=== PATIENT | female | born 1945 | race Caucasian/White ===

== ENCOUNTER 2016-07-03 19:56 | Inpatient (IN) | payer MEDICARE, OTHER ==
[~2016-07-03] VITALS: Ht 172 cm; Wt 61.0 kg
[~2016-07-03 19:56] MED LIST: AMOXICILLIN 8751 TAB PO; ANUSOL HC CREAM30 GM TP; ASPIRIN E.C. 8181 MG PO; ATROVENT I0.2 MG/1 M; CATAPRES-TTS 10.1 M1 TD; CEPHALEXIN500 M1 PO; CLARITIN 1010 MG/TAB PO; COUMADIN 1MG1 MG/TAB PO; COUMADIN 2MG2 MG/TAB; COUMADIN 2MG2 MG/TAB PO; DESYREL 50MG50 MG PO; FASLODEX250 MG/5 M IM; FEMARA PO; HCTZ 25MG TAB25 MG PO; HYDROCORT CREAM2.5% TP; IRON TABLETS325 MG PO; L-GLUTAMINE PO; L-GLUTAMINE500 M2 PO; LAMISIL1% TOP; LANOXIN 0.120.125 MG PO; LEVAQUIN 750MG750 M1 PO; LEVOXYL0.088 MG PO; LIPITOR 40MG TA40 MG PO; LOPRESSOR 225 MG/TAB PO; LOTENSIN40 MG PO; MEGACE20 MG; MIRALAX PA17 GM/Dose PO; MOBIC 7.5MG7.5 MG; NASACORT OTC NS; NEURONTIN100 MG/CAP PO; NEURONTIN300 MG/CAP PO; NORCO 325 MG-51 TAB PO; NORVASC 10MG10 MG PO; NORVASC 5MG5 MG/TAB PO; OXY IR5 MG PO; PERCOCET 325 MG1 TA2 PO; PERCOCET 325 MG1 TAB PO; PLAVIX 75MG TAB75 MG PO; PRAVACHOL 20MG20 MG PO; PREDNISONE 5MG5 MG PO; PREDNISONE10 MG PO; PRILOSEC 20MG20 MG PO; PROAIR HFA0.09 MG/AC IH; PROFERRIN ES12 MG PO; PROLIA60 MG/ML SC; RESTORIL 1515 MG/CAP PO; RT ALBUTER2.5 MG/0.5; RT SPIRIVA18 MCG IH; SENOKOT S 50 MG1 TAB PO; TOPROL XL 25MG25 MG PO; ULTRAM 50MG TAB50 MG; ULTRAM 50MG TAB50 MG PO; XANAX .25M0.25 MG/TA PO; ZANAFLEX CAPSULE4 MG PO; ZOCOR 10MG10 MG; ZYLOPRIM 300MG300 MG PO; [UNRECOGNIZED DRUG - OTHER]
[2016-07-03 22:06] VITALS: BP 128/73; PULSE 110; TEMP 98.5
[2016-07-03 22:33] LABS: ADJUSTED CALCIUM 9.6 mg/dL (8.4-10.2); ALBUMIN 2.9 gm/dL (3.5-5.0); BILIRUBIN,TOTAL 0.8 mg/dL (0.0-1.0); CALCIUM 8.7 mg/dL (8.4-10.2); CREATININE, serum 0.62 mg/dL (0.52-1.25); POTASSIUM 3.9 mmol/L (3.4-5.0); TOTAL PROTEIN 5.6 gm/dL (6.4-8.2)
[2016-07-04] VITALS (7 sets, daily range): BP systolic 101–155; BP diastolic 50–99; PULSE 65–115; TEMP 97.5–98.6
[2016-07-04] MEDS ORDERED: PROAIR HFA0.09 MG/AC IH (01:31)
[2016-07-04] MEDS ORDERED: ZYLOPRIM 300MG300 MG PO (01:32)
[2016-07-04] MEDS ORDERED: NIRAVAM0.25 MG PO (01:33)
[2016-07-04] MEDS ORDERED: MACROBID 1100 MG/CAP PO (01:48)
[2016-07-04] MEDS ORDERED: PREDNISONE10 MG PO (01:49)
[2016-07-04 17:15] LABS: MEAN CELL VOLUME 95 fl (80.0-100.0); MEAN CORPUSCULAR HGB CONC 32 g/dl (33.0-37.0); MEAN PLATELET VOLUME 9.2 fl (7.4-10.4); PLATELET COUNT 315 K/mm3 (130-400); RED BLOOD COUNT 3.33 M/mm3 (4.10-5.30); REDCELL DISTRIBUTION WIDTH-CV 15.2 % (11.5-14.5); WHITE BLOOD COUNT 15.6 K/mm3 (4.8-10.8)
[2016-07-04 17:23] LABS: CALCIUM 8.1 mg/dL (8.4-10.2); CREATININE, serum 0.78 mg/dL (0.52-1.25); DIGOXIN 1.5 ng/mL (0.8-2.0); POTASSIUM 4.7 mmol/L (3.4-5.0)
[2016-07-04 17:24] LABS: HEMATOCRIT 31.5 % (37.0-47.0); HEMOGLOBIN 10.2 g/dl (12.5-16.0); MEAN CORPUSCULAR HEMOGLOBIN 31 pg (27.0-31.0)
[2016-07-04 17:26] LABS: ADD PATHOLOGY DIFF REVIEW NO
[2016-07-04 17:45] LABS: BAND 6 % (0-10); MYELOCYTE 1 % (0-0); NEUTROPHILS 89 % (42.0-75.2); PLATELET ESTIMATE NORMAL (NORMAL); TOTAL CELLS COUNTED 100
[2016-07-05 03:13] VITALS: BP 167/91; PULSE 98; TEMP 98.7
[2016-07-05 07:07] LABS: BASO % 0.1 % (0.0-2.0); EOS # 0.1 (0.0-0.7); EOS % 0.5 % (0-4.0); GRAN # 10.2 (1.4-6.5); GRAN % 85.6 % (42.2-75.2); HEMATOCRIT 28.8 % (37.0-47.0); HEMOGLOBIN 9.2 g/dl (12.5-16.0); LYMPH # 0.7 (1.2-3.4); LYMPH % 5.5 % (20.0-51.0); MEAN CELL VOLUME 96 fl (80.0-100.0); MEAN CORPUSCULAR HEMOGLOBIN 31 pg (27.0-31.0); MEAN CORPUSCULAR HGB CONC 32 g/dl (33.0-37.0); MEAN PLATELET VOLUME 9.8 fl (7.4-10.4); MONO # 0.9 (0.1-0.6); MONO % 7.5 % (1.7-9.3); PLATELET COUNT 289 K/mm3 (130-400); RED BLOOD COUNT 3.01 M/mm3 (4.10-5.30); REDCELL DISTRIBUTION WIDTH-CV 15.4 % (11.5-14.5); WHITE BLOOD COUNT 11.9 K/mm3 (4.8-10.8)
[2016-07-05 07:26] LABS: ALBUMIN 2.3 gm/dL (3.5-5.0); BILIRUBIN,TOTAL 0.8 mg/dL (0.0-1.0); CALCIUM 7.6 mg/dL (8.4-10.2); CREATININE, serum 0.93 mg/dL (0.52-1.25); TOTAL PROTEIN 4.5 gm/dL (6.4-8.2)
[2016-07-05 07:33] VITALS: BP 98/52; PULSE 79; TEMP 97.8
[2016-07-05 16:07] VITALS: BP 116/45; PULSE 95; TEMP 97.6
[2016-07-05 20:30] VITALS: BP 125/84; PULSE 78; TEMP 98.6
[2016-07-06] MEDS ORDERED: IPRATROPIUM BROM3 M1 IH (09:20)
[2016-07-06] MEDS ORDERED: TYLENOL 325MG325 MG PO (09:22)
[2016-07-06] MEDS ORDERED: COMPAZINE25 MG/SUPP RC (09:24)
[2016-07-06] MEDS ORDERED: TRANSDERM-0.5 MG/21 TD (09:24)
[2016-07-06] MEDS ORDERED: DULCOLAX S10 MG/SUPP RC (09:25)
[2016-07-06] MEDS ORDERED: ZOFRAN8 MG PO (09:25)
[2016-07-06] MEDS ORDERED: TUMS ULTRA ST1000 MG PO (09:26)
[2016-07-06] MEDS ORDERED: ROXANOL 20MG20 MG/ML SL (09:29)
[2016-07-06] MEDS ORDERED: XANAX 0.5MG0.5 MG PO (09:29)
[2016-07-06 11:15] VITALS: BP 125/84; PULSE 78; TEMP 98.6
== END 2016-07-06 12:45 | disposition hospice, inpatient (51) | DRG 180 ==
LOC: MEDICAL 19:56
PROVIDERS: Internal Medicine Medical Oncology; Nurse Practitioner Family
PROC: 0W9G3ZZ Drainage of Peritoneal Cavity, Percutaneous Approach (ICD-10-PCS; principal; 2016-07-05)
DX: C78.02 Secondary malignant neoplasm of left lung (principal); E43 Unspecified severe protein-calorie malnutrition; R18.0 Malignant ascites; C78.7 Secondary malignant neoplasm of liver and intrahepatic bile duct; C78.01 Secondary malignant neoplasm of right lung; Z51.5 Encounter for palliative care; Z85.3 Personal history of malignant neoplasm of breast; I10 Essential (primary) hypertension; J44.9 Chronic obstructive pulmonary disease, unspecified; Z87.891 Personal history of nicotine dependence; I27.81 Cor pulmonale (chronic)
CPT/HCPCS: OP; 99223-AI; 99233-AI; 99239; G0378; G8978-GP; G8979-GP; J1170; J1956; J2060; J2405; J2543; J7030; J7050; J7512

== ENCOUNTER 2016-07-10 10:00 | Outpatient (CLI) | payer MEDICARE, OTHER ==
[~2016-07-10] VITALS: Ht 172.7 cm; Wt 56.8 kg
[~2016-07-10 10:00] MED LIST changes: +COMPAZINE25 MG/SUPP RC; +DULCOLAX S10 MG/SUPP RC; +IPRATROPIUM BROM3 M1 IH; +MACROBID 1100 MG/CAP PO; +NIRAVAM0.25 MG PO; +ROXANOL 20MG20 MG/ML SL; +TRANSDERM-0.5 MG/21 TD; +TUMS ULTRA ST1000 MG PO; +TYLENOL 325MG325 MG PO; +XANAX 0.5MG0.5 MG PO; +ZOFRAN8 MG PO
[2016-07-10] MEDS ORDERED: MILK OF MA400 MG/52 PO (10:46)
[2016-07-10] MEDS ORDERED: GENTLE LAXATIVE10 MG RC (10:47)
[2016-07-10] MEDS ORDERED: ALMACONE 360 M360 ML PO (10:47)
[2016-07-10] MEDS ORDERED: TYLENOL SU650 MG/SUP RC (10:48)
[2016-07-10] MEDS ORDERED: IMODIUM 2MG CAPS2 MG PO (10:49)
[2016-07-10] MEDS ORDERED: ARTIFICIAL TEAR15 M7 OP (10:49)
[2016-07-10] MEDS ORDERED: TYLENOL 325MG325 MG PO (10:49)
[2016-07-10] MEDS ORDERED: IPRATROPIUM BROM3 M1 IH (10:50)
[2016-07-10] MEDS ORDERED: XANAX 0.5MG0.5 MG PO (10:50)
[2016-07-10] MEDS ORDERED: COMPAZINE25 MG/SUPP RC (10:51)
[2016-07-10] MEDS ORDERED: TUMS500 MG (10:51)
[2016-07-10] MEDS ORDERED: NEURONTIN100 MG/CAP PO (10:52)
[2016-07-10] MEDS ORDERED: RESTORIL 1515 MG/CAP PO (10:52)
[2016-07-10] MEDS ORDERED: ZOFRAN8 MG PO (10:52)
[2016-07-10] MEDS ORDERED: DESYREL 50MG50 MG PO (10:53)
[2016-07-10] MEDS ORDERED: COLACE 100100 MG/CAP PO (10:53)
[2016-07-10] MEDS ORDERED: ROXANOL 20MG20 MG/ML PO (10:54)
[2016-07-10] MEDS ORDERED: OXYGEN MC (10:55)
[2016-07-10 10:56] VITALS: BP 118/62; PULSE 101; TEMP 98.3
[2016-07-10 12:16] VITALS: BP 162/80; PULSE 108
== END 2016-07-10 15:56 | disposition home or self-care (01) ==
LOC: COL.CAR 10:00 → EUO 10:00 → COL.CAR 15:56 → COL.RAD 07-11 14:15
DX: R18.0 Malignant ascites (principal); C78.7 Secondary malignant neoplasm of liver and intrahepatic bile duct; C50.919 Malignant neoplasm of unspecified site of unspecified female breast
CPT/HCPCS: A7048; C1729; C1769; J0690; J2250; J7120